=== PATIENT | female | born 1990 | race Caucasian/White ===

== ENCOUNTER → 2020-09-29 01:16 | Outpatient (CLI) | payer OTHER, SELFPAY ==
[2020-09-29 17:24] LABS: SARS-CoV-2 RNA PCR Negative
== END ==
PROVIDERS: Visit Provider Surgery Plastic and Reconstructive Surgery
DX: Z01.812 Encounter for preprocedural laboratory examination (principal); Z20.822 Contact with and (suspected) exposure to COVID-19
CPT/HCPCS: C9803; U0003; U0005

== ENCOUNTER 2020-10-02 08:54 | Day surgery (SDC) | payer OTHER, SELFPAY ==
[2020-09-17 13:31] VITALS: BMI 17.4
[2020-10-02] VITALS (10 sets, daily range): BP systolic 106–126; BP diastolic 73–88; PULSE 76–100; RESP 12–20; TEMP 36.3–36.8; O2SAT 99–100; BMI 17.4
--- NOTE | 2020-10-02 08:20 | WPDANESEPPF ---
Anes - Initial Pre Proc Eval Procedure: Operation Date: 10/02/20 10:30 Proposed Procedures p Bilateral Breast Augmentation Mammoplasty - Franky Devine MD Date/Time: 10/02/20 08:20 Surgeon: Franky Devine MD Pre Op Diagnosis: Micromastia Patient Data Age: 30 Gender: F Height: 1.8 m Weight: 56.5 kg Allergies Allergy/AdvReac Type Severity Reaction Status Date / Time acetaminophen [From Vicodin] AdvReac Mild Nausea Verified 09/17/20 13:14 hydrocodone [From Vicodin] AdvReac Mild Nausea Verified 09/17/20 13:14 Home Medications Medication Instructions Recorded Confirmed Type zolpidem 10 mg tablet 10 mg PO QHS 07/28/20 09/17/20 History docusate sodium 100 mg capsule 100 mg PO DAILY #21 cap 09/17/20 09/17/20 Rx norethindrone-e.estradiol-iron 1 tablet PO DAILY 09/17/20 09/17/20 History [05/06 ()] ondansetron HCl 4 mg tablet 4 mg PO Q8H #14 tablet 09/17/20 09/17/20 Rx carisoprodol 350 mg tablet 350 mg PO TID PRN #21 tablet 09/24/20 Rx oxycodone-acetaminophen 5 mg-325 1 tablet PO Q6H PRN #15 tablet 09/24/20 Rx mg tablet Patient hx anesthesia problems: none Family hx anesthesia problems: none PMFSH Past Medical History Medical History (Updated 10/02/20 @ 09:23 by Daren Alonzo DO) Pectus carinatum repaired Family History Family History Father Heart disease Grandparent Cerebrovascular accident Social History Social History Tobacco type: e-cigarettes/vaping Alcohol intake: current Drinks per week: 4 Substance use: never Substance use type: does not use Last use: 08-24-2020 Living arrangements: alone Gender identity (if verbalized by the patient): Female Spiritual care concerns: No Anes - Eval Final PreProcedure Day of Procedure 10/02/20 08:20 Patient weight: thin Heart: regular rate and rhythm Lungs: clear to auscultation and normal air movement Airway: Mallampati scale class II Neurological: alert and oriented Last oral intake: >/= 8 hours ASA classification: II Emergent: no Anesthetic plan: proceed Anesthesia type and monitoring: general LMA and standard monitoring Informed Consent: The patient's anesthetic plan and its attendant risks and benefits were discussed with the patient/family/POA. Questions were solicited and answers provided to the satisfaction of the patient/family/POA.
--- NOTE | 2020-10-02 09:42 | WPDHPUPDATE1 ---
History and Physical Update Update Date/Time: 10/02/20 09:42 History and Physical has been reviewed, including an updated exam of the patient. There are NO changes in the patient's condition. Risks, benefits, and alternatives have been discussed and questions answered. Patient agrees to proceed with procedure.
[2020-10-02] MEDS: LACTATED RINGERS 1,000 ML 30 ML IV CONT ×2 (10:00→11:05)
--- NOTE | 2020-10-02 10:01 | W.PM.PROC2 ---
Procedure Note - Detailed Date of Procedure 10/02/20 Pre-op Diagnosis Micromastia History pectus carinatum Post-op Diagnosis same Procedure Performed Bilateral Augmentation Mammaplasty Surgeon Franky Devine MD Anesthesia general Findings Bilateral Shelley Sands SoftTouch Silicone implants Right - REF# [id number] SN [id number] Left - REF# [id number] SN [id number] Significant step off right chest wall from previous pectus repair. No complications / concerns noted during procedure. Description of Procedure She is here today for bilateral breast augmentation. Previously and again today the risks, benefits, alternatives were discussed in extensive detail. I wanted her to be very realistic about the risks involved as well as expectations. We reviewed the risks of her pectus carinatum. She understands there is increase unknown risks given her surgical history and she understands these risks can be severe. She will never have symmetry of the breasts. We discussed the scar and chest wall deformity and how this relates to her outcome. Sizing of implants had been discussed extensively to make sure we were in full agreement. We discussed aftercare and what to monitor for. Made sure answered all of her questions to her satisfaction today and consent was obtained. Marked in the preoperative holding area with their verification. The patient was taken to the operating room placed supine on the operating table. Anesthesia was provided by anesthesiology. A surgical time-out was taken. We cleansed the skin and 1% lidocaine and 0.25% Marcaine with epinephrine was used anesthetize as a field block. She was prepped and draped in a standard sterile fashion. Tegaderm nipple Anderson were placed. A 15 blade used to make an incision along the inframammary fold. Dissection was continued at 45 degree angle until the chest wall as identified. I incised the pectoralis major along its inferior border and completely released the inferior border leaving the medial border intact. I created a subpectoral pocket in the appropriate dimensions based on our preoperative planning for the implant. I then copiously irrigated with saline solution and verified a strict hemostasis. Next the use a triple antibiotic and Betadine containing solution to irrigate the pocket. I washed my gloves with the triple antibiotic and Betadine solution. We washed the implant immediately upon opening it with this solution and only opened it when we needed it. I used implant funnel and no-touch technique. The implant was introduced into the pocket using the funnel. Having verified positioning of the implant this was closed using 2-0 Vicryl followed by 3-0 Monocryl in a running subcuticular 4-0 Monocryl followed by tissue glue. Fluffs, Ariel wrap, and surgical bra were placed. Patient was awoke and taken to PACU without difficulty. All instrument sponge counts were correct at the end of the case. Estimated Blood Loss 10 Drains No Packing No Pathology none sent Complications No immediate complications Condition stable Disposition PACU
[2020-10-02] MEDS: LIDO 1%/EPINEPHRINE 1:100,000 20 ML VIAL 30 ML INFILTRATE (10:57)
[2020-10-02] MEDS: fentaNYL CITRATE INJ (*CRX) 100 MCG/2 ML VIAL 25 MCG IV PUSH ×2 (11:30→11:46)
[2020-10-02] MEDS: ONDANSETRON INJ 4 MG/2 ML VIAL IV PUSH (11:32)
--- NOTE | 2020-10-02 12:10 | WPDANESPN ---
Anes - Prog Note Post-Op Date/Time: 10/02/20 12:10 Cardiovascular status: normal Respiratory status: normal Airway patency: baseline Mental status: baseline Post-Op hydration status: normal Vital Signs: Last Vital Signs Temp 36.3 C L 10/02/20 11:05 Pulse 76 10/02/20 11:52 Resp 12 10/02/20 11:52 BP 116/78 10/02/20 11:52 Pulse Ox 100 10/02/20 11:52 Pain Score (VAS): 1 Post-procedural complaints: none Patient Feedback: Patient satisfied with anesthetic care. Other Findings: Patient vital signs back to baseline. Patient denies nausea and vomiting. Patient's pain under control. Patient OK for discharge.
== END 2020-10-02 12:50 | disposition home or self-care (01) ==
PROVIDERS: Visit Provider Surgery Plastic and Reconstructive Surgery
PROC: (CPT 19325; principal; 2020-10-02 10:30)
DX: N64.82 Hypoplasia of breast (principal)
CPT/HCPCS: 19325